=== PATIENT | male | born 1945 | race Caucasian/White ===

== ENCOUNTER 2017-10-14 13:26 | Day surgery (SDC) | payer BC, MEDICARE ==
[2017-10-14] MEDS: DEXAMETHASONE SOD PHOS PF 10 MG/ML SOL IJ ONE ×2 (14:30→14:31)
[2017-10-14 14:43] VITALS: BP 126/74; PULSE 65; RESP 20; TEMP 97.4; O2SAT 93
== END 2017-10-14 14:55 | disposition home or self-care (01) ==
LOC: SURG 13:26
PROVIDERS: ATTEND Nurse Anesthetist, Certified Registered
DX: M48.062 Spinal stenosis, lumbar region with neurogenic claudication (principal)
CPT/HCPCS: J1100

== ENCOUNTER 2017-10-14 21:32 | Emergency (ER) | payer BC, MEDICARE ==
[2017-10-14] MEDS ORDERED: SODIUM CHLORIDE 0.9% 500 ML 500 ML IV ONE (21:44)
[2017-10-14] MEDS ORDERED: HUMALOG PEN 100 U/ML SC ONE ×3 (21:44→23:06)
[2017-10-14] MEDS ORDERED: SODIUM CHLORIDE 0.9% FLUSH 10 ML SOL IV PRN (21:44)
[2017-10-14 21:54] LABS: BASOPHILS % (AUTO) 0 % (0-3); EOSINOPHILS % (AUTO) 0 % (0-9); HEMATOCRIT 51 % (39-53); HEMOGLOBIN 17.3 gm/dl (13.5-17.7); LYMPHOCYTES % (AUTO) 7.3 % (10-50); MEAN CORPUSCULAR HEMOGLOBIN 29.6 pg (27.0-32.0); MEAN CORPUSCULAR HGB CONC 33.7 gm/dl (32.0-36.0); MEAN CORPUSCULAR VOLUME 88 fL (80-100); MONOCYTES % (AUTO) 0.5 % (0-12); NEUTROPHILS % (AUTO) 91.9 % (37-80)
[2017-10-14 21:58] VITALS: TEMP 97.1
[2017-10-14 22:09] LABS: CALCIUM 8.7 mg/dl (8.5-10.1); CREATININE 1.71 mg/dl (0.80-1.30); POTASSIUM 5.6 mMol/L (3.5-5.1)
[2017-10-14 23:50] VITALS: BP 141/76; PULSE 69; RESP 18; O2SAT 92
== END 2017-10-14 23:40 | disposition home or self-care (01) ==
LOC: ED 21:32
DX: E11.65 Type 2 diabetes mellitus with hyperglycemia (principal); Z79.84 Long term (current) use of oral hypoglycemic drugs
CPT/HCPCS: 80048; 82962; 85025; 96365; 96372; 99284; 99285; J1815; J1100